=== PATIENT | male | born 1970 | race Two or more races ===

== ENCOUNTER 2021-05-18 12:53 | Emergency (ER) | payer MEDICAID, SELFPAY ==
--- NOTE | ~2021-05-18 | CT_ITS ---
EXAMINATION: CT HEAD WITHOUT CONTRAST CLINICAL INFORMATION: Headache. Evaluate for bleed, stroke, mass effect. COMPARISON: None TECHNIQUE: Contiguous axial imaging was performed from the skull base to vertex without intravenous administration of contrast. This CT examination was performed using dose optimization techniques as appropriate, variously including the following: *Automated exposure control *Adjustment of mA and/or kV according to patient size (this includes techniques or standardized protocols for targeted exams where dose is matched to indication/reason for exam; i.e. extremities or head) *Use of iterative reconstruction technique DLP: 723 mGy-cm FINDINGS: There is no evidence of acute intracranial hemorrhage or territorial infarction. No abnormal mass effect or midline shift is seen. [place] to white matter differentiation is well preserved. No extra-axial fluid collections are identified. The ventricles are normal in size. There is no abnormal attenuation within the brain parenchyma. The osseous structures and soft tissues are normal. Bilateral maxillary sinus mucus retention cysts versus polyps. The remaining paranasal sinuses and mastoid air cells are clear. CT/CT head/brain wo con IMPRESSION: No acute intracranial hemorrhage or mass effect.
[2021-05-18 13:26] VITALS: BP 113/78; PULSE 75; RESP 18; TEMP 36.8; O2SAT 99; BMI 25.0
--- NOTE | 2021-05-18 16:20 | ECG_ITS ---
Test Reason : headache Blood Pressure : / mmHG Vent. Rate : 069 BPM Atrial Rate : 069 BPM P-R Int : 124 ms QRS Dur : 090 ms QT Int : 406 ms P-R-T Axes : 022 -12 021 degrees QTc Int : 435 ms Sinus rhythm with occasional Premature ventricular complexes Intra-ventricular conduction delay Borderline ECG No previous EKG. Referred By: Sridhar Michael Electronically Signed By:LUH JONES MD
--- NOTE | 2021-05-18 16:21 | ED.GENADULT ---
HPI - General Adult General Chief complaint: Headache Stated complaint: low bp Time Seen by Provider: 05/18/21 16:08 Source: family (Sister, Kenzie) Mode of arrival: ambulatory Limitations: no limitations History of Present Illness HPI narrative: 50-year-old male with mental disability who was brought to emergency department by his sister for evaluation of severe headaches and low blood pressure. The patient speaks mainly [place] but according to his sister he does not speak very many words. The patient has been having headaches for the past 5-6 months. He gets these headaches 2 to 3 times a week. The headaches seem to be worse at night. Two nights prior, the patient woke up in the middle night with a a severe headache. The patient has been taking ibuprofen with some relief of his pain. The sister also states that when the patient gets a severe headache is blood pressure is low, with systolic blood pressures in the 90 range. The patient occasionally vomits with this headache. The patient is not able to quantify the headache or characterize the headache. He does point to his forehead when asked where his headache is located. Related Data Previous Rx's Medication Instructions Recorded metoclopramide HCl 10 mg tablet 10 mg PO Q6H PRN #14 tab 05/18/21 (Reglan) Allergies Allergy/AdvReac Type Severity Reaction Status Date / Time No Known Allergies Allergy Verified 05/18/21 13:32 Review of Systems Review of Systems: Yes all other systems are reviewed and are negative [facility] Past Medical History [facility] Narrative: Past medical history: Mental disability. Past surgical history: None. Social history: The patient lives with his mother, he is here in the emergency department with his sister. The patient smokes cigarettes daily, he occasionally drinks alcohol, he does not use drugs. Medical History (Updated 05/18/21 @ 18:23 by Sridhar Michael MD) Developmental delay, severe Social History Social History Alcohol intake: never Patient Tobacco Use Status: Never used Tobacco Use of substances other than those prescribed or required for medical reasons: No Advance Directives: No Advance Directives Information Provided: No Physical Exam Vital Signs: Vital Signs: Last Vital Signs Temp 98.3 F 05/18/21 13:26 Pulse 62 05/18/21 17:06 Resp 18 05/18/21 17:06 BP 98/66 05/18/21 17:06 Pulse Ox 99 05/18/21 17:06 Body Mass Index 25.0 Const: Other: Awake, alert, male patient, does not appear to be in distress, he only understands [place] , he was nonverbal in the emergency department but did follow instructions given to him by his sister in [place]ian. HENMT: Head: Yes normal to inspection, Yes normocephalic and Yes atraumatic Ears: external ears normal General nose exam: Normal external nose present Face and sinus: Yes normal facial exam Mouth: Normal oral and palatal mucosa present Throat: Yes posterior oropharynx normal Eyes: General: appearance normal, both eyes and all related structures Pupils: Equal, round and reactive pupils present Neck: Neck: Yes normal visual inspection, Yes no lymphadenopathy, Yes trachea midline and Yes supple Chest: Chest palpation & inspection: normal inspection of the chest and normal palpation of entire chest wall Resp: Effort & Inspection: normal respiratory effort and able to speak in complete sentences Auscultation: clear to auscultation bilaterally Cardio: Rate: regular rate Rhythm: regular rhythm Heart sounds: S1 normal heart sound present, S2 normal heart sound present and no murmurs GI: Inspection: Yes normal to inspection Palpation (GI): Soft to palpation, nontender and no guarding Auscultation: normal bowel sounds : General: Yes no CVA tenderness Back/Spine/Pelvis: Back: no CVA tenderness Skin: General skin exam: no rashes or lesions noted Neuro: Cranial nerves: Yes CN's II-XII intact bilaterally and Yes Equal, round and reactive pupils present Cognition (Neuro): normal cognition Motor exam (neuro): 5/5 motor strength present throughout Extrem: General: Yes normal to inspection Psych: Appearance: grossly normal Affect: normal affect Attitude: cooperative Course Course Course Narrative: 50-year-old male with mental disability who presents emergency department for evaluation of headache that he has had for approximately 6 months, 2 to 3 times a week which have been getting worse and are mainly worse at night. Family also noted that the patient is systolic blood pressures are in the 90 range whenever he gets a headache. The patient's vital signs were normal at this time. Physical examination was unremarkable with a non focal neurologic exam. Differential includes but is not limited to tumor causing mass effect, yarsani arteritis, subarachnoid hemorrhage/aneurysm, chronic headache syndrome such as migraine or tension headache. A will obtain a CT scan of head without contrast, CBC, CMP, sedimentation rate and 12 EKG. Patient does not appeared to be in distress this time he does not have a headache therefore he was not given any medications. 1821: The patient's CT scan of the head was unremarkable. The patient's laboratory evaluation was all not remarkable as well. The patient most likely is having migraine-like headaches and I did discuss this with sister. Patient was started on the following regimen: Reglan 10 mg, Benadryl 50 mg, Excedrin migraine 2 tablets every 6 hours as needed for headache. Sister was given verbal and printed instructions the patient was discharged in her care. Medical Decision Making Lab Data Result diagrams: 05/18/21 16:37 05/18/21 16:37 Labs: Lab Results 05/18/21 05/18/21 05/18/21 Range/Units 16:37 16:37 16:37 WBC 4.4 L (4.8-10.8) X10*3/uL RBC 5.32 (4.60-5.80) X10*6/uL Hgb 14.1 (14.0-18.0) g/dl Hct 42.3 (42.0-52.0) % MCV 79.5 L (80.0-98.0) fL MCH 26.5 L (27.0-33.0) pg MCHC 33.3 (31.0-36.0) g/dl RDW 15.7 (11.0-16.0) % Plt Count 163 (160-400) X10*3/uL MPV 11.6 (9.4-12.4) fL Immature Gran % (Auto) 0.2 (0.0-0.4) % Neut % (Auto) 43.9 L (45-73) % Lymph % (Auto) 49.1 H (20-40) % [place] % (Auto) 4.5 (2-11) % Eos % (Auto) 1.8 (0-4) % Baso % (Auto) 0.5 (0-2) % Lymph # (Auto) 2.2 (1.2-4.9) X10*3/uL [place] # (Auto) 0.2 (0.1-1.2) X10*3/uL Eos # (Auto) 0.1 (0.0-0.4) X10*3/uL Baso # (Auto) 0.0 (0.0-0.2) X10*3/uL Abs Immat Gran (auto) 0.01 (0.00-0.03) X10*3/uL Absolute Neuts (auto) 1.9 L (2.0-8.3) x10*3/uL Absolute Nucleated RBC 0.000 (0.0-0.012) X10*3/uL Nucleated RBC % (auto) 0.0 (0.0-0.2) /100WBC ESR 14 (0-15) MM/HR Sodium 140 (135-145) mmol/L Potassium 4.4 (3.3-5.1) mmol/L Chloride 107 (96-108) mmol/L Carbon Dioxide 26 (22-29) mmol/L Anion Gap 11 L (12-20) BUN 7 L (9-16) mg/dL Creatinine 0.87 (0.5-1.4) mg/dL Estim Creat Clear Calc 88.3 Estimated GFR > 60 Random Glucose 91 (60-115) mg/dL Calcium 8.5 (8.4-10.2) mg/dL Total Bilirubin 0.5 (0.0-1.0) mg/dL AST 16 (5-37) U/L ALT 17 (0-40) U/L Alkaline Phosphatase 80 (39-117) U/L Total Protein 7.1 (6.5-8.0) g/dL Albumin 4.4 (3.5-5.0) g/dL Discharge Plan Discharge Clinical Impression: Headache Patient Disposition: Home, Self-Care Instructions: Migraine Headache (ED) Additional Instructions: The CT scan of your head was normal which is reassuring Your blood work was normal which again is reassuring. Your symptoms are consistent with a migraine-like headache. I want you to take the following 3 medications together every 6 hours as needed for headache, nausea or vomiting. Reglan (metoclopramide) in 10 mg, 1 pill Benadryl 25 mg, 2 pills Excedrin migraine, 2 pills. After you take these medications, lie down in a dark quiet room and try to fall asleep. These medications will make you sleepy, do not drive or work after taking these medications. Follow-up with your doctor in 2 days. Please return to the emergency department if your symptoms get worse or if you develop any symptoms that are concerning to you. Prescriptions: New metoclopramide HCl [Reglan] 10 mg tablet 10 mg PO Q6H PRN (Reason: nausea and vomiting) Qty: 14 RF: 0
[2021-05-18 16:39] VITALS: BP 134/87
[2021-05-18 16:45] LABS: MANUAL DIFF FLAG NO
[2021-05-18 16:47] LABS: Basophils Percent Auto 0.5 % (0-2); Eosinophils Absolute Auto 0.1 X10*3/uL (0.0-0.4); Eosinophils Percent Auto 1.8 % (0-4); Hematocrit 42.3 % (42.0-52.0); Hemoglobin 14.1 g/dl (14.0-18.0); Imm Gran Abs Auto 0.01 X10*3/uL (0.00-0.03); Imm Gran Pct Auto 0.2 % (0.0-0.4); Lymphocytes Absolute Auto 2.2 X10*3/uL (1.2-4.9); Lymphocytes Percent Auto 49.1 % (20-40); Mean Corpuscular HGB Conc 33.3 g/dl (31.0-36.0); Mean Corpuscular Hemoglobin 26.5 pg (27.0-33.0); Mean Corpuscular Volume 79.5 fL (80.0-98.0); Mean Platelet Volume 11.6 fL (9.4-12.4); Monocytes Absolute Auto 0.2 X10*3/uL (0.1-1.2); Monocytes Percent Auto 4.5 % (2-11); Neutrophils Absolute Auto 1.9 x10*3/uL (2.0-8.3); Neutrophils Percent Auto 43.9 % (45-73); Platelet Count 163 X10*3/uL (160-400); Red Blood Count 5.32 X10*6/uL (4.60-5.80); Red Cell Distribution Width 15.7 % (11.0-16.0); White Blood Count 4.4 X10*3/uL (4.8-10.8)
[2021-05-18 17:04] LABS: Alanine Aminotransferase 17 U/L (0-40); Albumin Level 4.4 g/dL (3.5-5.0); Alkaline Phosphatase 80 U/L (39-117); Anion Gap 11 (12-20); Aspartate Amino Transferase 16 U/L (5-37); Bilirubin Total 0.5 mg/dL (0.0-1.0); Blood Urea Nitrogen 7 mg/dL (9-16); Calcium 8.5 mg/dL (8.4-10.2); Carbon Dioxide 26 mmol/L (22-29); Chloride 107 mmol/L (96-108); Creatinine Clr Calc Pharmacy 88.3; Estimated Glomerular Filt Rate > 60; Glucose Random 91 mg/dL (60-115); Potassium 4.4 mmol/L (3.3-5.1); Sodium 140 mmol/L (135-145); Total Protein 7.1 g/dL (6.5-8.0)
[2021-05-18 17:06] VITALS: BP 98/66; PULSE 62; RESP 18; O2SAT 99
[2021-05-18 17:28] LABS: Erythrocyte Sedimentation Rate 14 MM/HR (0-15)
[2021-05-18 18:27] VITALS: BP 101/65; PULSE 74; RESP 16; TEMP 36.5; O2SAT 100
== END 2021-05-18 18:34 | disposition home or self-care (01) ==
PROVIDERS: Emergency Provider Emergency Medicine Emergency Medical Services; PCP Physician Assistant Medical
DX: R51.9 Headache, unspecified (principal)
CPT/HCPCS: 36415; 70450; 80053; 85025; 85652; 93005; 99284